=== PATIENT | female | born 1995 | race American Indian/Alaskan Native ===

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

== ENCOUNTER 2019-07-16 10:56 | Outpatient (CLI) | payer BC, MEDICAID | END 2019-07-16 17:35 | disposition home or self-care (01) | LOC: TRG 10:56 → LAB 10:56 → TRG 17:06 | PROVIDERS: ATTEND Obstetrics & Gynecology | DX: O26.893 Other specified pregnancy related conditions, third trimester (principal); Z3A.28 28 weeks gestation of pregnancy; Z67.21 Type B blood, Rh negative | CPT/HCPCS: 86850; 86870; 86900; 86901; 96372; J2790 ==

== ENCOUNTER 2019-09-15 05:20 | Observation (INO) | payer BC, MEDICAID ==
[2019-09-15 06:17] LABS: Basophils % (Auto) 0.3 % (0.0-1.8); Eosinophils # (Auto) 0.3 K/mm3 (0.0-0.4); Hematocrit 30.9 % (30.3-42.9); Hemoglobin 10.1 gm/dl (10.1-14.3); Lymphocytes # (Auto) 2.5 K/mm3 (1.2-5.4); Lymphocytes % (Auto) 26.6 % (13.4-35.0); Mean Corpuscular HGB Conc 33 % (30-34); Mean Corpuscular Volume 86 fl (79-97); Monocytes # (Auto) 0.7 K/mm3 (0.0-0.8); Monocytes % (Auto) 7.4 % (0.0-7.3); Red Blood Count 3.61 M/mm3 (3.65-5.03); Red Cell Distribution Width 15.4 % (13.2-15.2)
--- NOTE | 2019-09-15 06:21 | XRay Report ---
CHEST 1 VIEW INDICATION / CLINICAL INFORMATION: Chest Pain. COMPARISON: None available. FINDINGS: SUPPORT DEVICES: None. HEART / MEDIASTINUM: No significant abnormality. LUNGS / PLEURA: No significant pulmonary or pleural abnormality. No pneumothorax. ADDITIONAL FINDINGS: No significant additional findings. IMPRESSION: 1. No acute findings. Signer Name: Fatmata Gutierrez MD Signed: 09/15/2019 6:17 AM Workstation Name: [id number]
[2019-09-15 06:30] LABS: Platelet Count 128 K/mm3 (140-440)
[2019-09-15 06:36] LABS: BUN/Creatinine Ratio 8; Blood Urea Nitrogen 7 mg/dL (7-17); Calcium 8.7 mg/dL (8.4-10.2); Hemolysis Index 1
--- NOTE | 2019-09-15 06:56 | Emergency Department Report ---
HPI - General Chief Complaint: Chest Pain Time Seen by Provider: 09/15/19 06:40 - HPI HPI: Room 17 The patient is a 24-year-old female present with a chief complaint of chest pain or shortness of breath. The patient is status post vaginal delivery 09/12/2019. The patient states she was discharged home yesterday after waking up from a nap she developed pain in her left chest. Patient describes her pain as a dull pressure. Patient denies nausea/vomiting or diaphoresis with her pain. Patient admits to pleurisy. Patient denies fever or cough. Patient states she has had swelling in both lower extremities since she delivered but the left seems greater than the right. Patient denies sick contacts. The patient states she is attempting to breast-feed ED Past Medical Hx - Past Medical History Previous Medical History?: No - Surgical History Past Surgical History?: No Additional Surgical History: D&C - Family History Family history: no significant - Social History Smoking Status: Never Smoker Substance Use Type: None (Denies illicit drug use) - Medications Home Medications: Home Medications Medication Instructions Recorded Confirmed Last Taken Type No.137/Iron/Folic Acd 1 each PO DAILY 09/10/19 09/10/19 09/10/19 History [[facility] Tablet] Ferrous Sulfate [Feosol 325 MG tab] 325 mg PO QDAY 30 Days #30 tablet 09/13/19 Unknown Rx ED Review of Systems ROS: Stated complaint: CHEST PAIN Other details as noted in HPI Constitutional: denies: diaphoresis, fever Eyes: denies: eye pain ENT: denies: throat pain Respiratory: shortness of breath. denies: cough Cardiovascular: chest pain Gastrointestinal: denies: abdominal pain, nausea, vomiting Genitourinary: denies: dysuria Musculoskeletal: denies: back pain Neurological: denies: headache Hematological/Lymphatic: other (Bilateral lower extremity edema) Physical Exam - Physical Exam Vital Signs: Vital Signs 09/15/19 09/15/19 09/15/19 05:26 06:09 06:15 Temperature 98.2 F Pulse Rate 66 61 60 Respiratory 14 18 30 H Rate Blood Pressure 133/78 119/73 O2 Sat by Pulse 100 100 99 Oximetry Physical Exam: GENERAL: The patient is well-developed well-nourished female lying on stretcher not appearing to be in acute distress. [] HEENT: Normocephalic. Atraumatic. Extraocular motions are intact. Patient has moist mucous membranes. NECK: Supple. Trachea midline CHEST/LUNGS: Clear to auscultation. There is no respiratory distress noted. HEART/CARDIOVASCULAR: Regular. There is no tachycardia. There is no gallop rub or murmur. ABDOMEN: Abdomen is soft, nontender. Patient has normal bowel sounds. There is no abdominal distention. SKIN: There is no rash. There is 1+ bilateral lower extremity pitting edema. There is no diaphoresis. NEURO: The patient is awake, alert, and oriented. The patient is cooperative. The patient has normal speech MUSCULOSKELETAL:There is no evidence of acute injury. ED Course Vital Signs 09/15/19 09/15/19 09/15/19 05:26 06:09 06:15 Temperature 98.2 F Pulse Rate 66 61 60 Respiratory 14 18 30 H Rate Blood Pressure 133/78 119/73 O2 Sat by Pulse 100 100 99 Oximetry - Consultations Consultation #1: 09/15/19 09:29 [employer] paged 09/15/19 10:[address] Benites-recommends hospitalist admit and consult him if necessary ED Medical Decision Making - Lab Data Result diagrams: 09/15/19 05:43 09/15/19 05:43 Laboratory Tests 09/15/19 09/15/19 09/15/19 05:43 05:43 06:49 WBC 9.3 RBC 3.61 L Hgb 10.1 Hct 30.9 MCV 86 MCH 28 MCHC 33 RDW 15.4 H Plt Count 128 L Lymph % (Auto) 26.6 Campbell % (Auto) 7.4 H Eos % (Auto) 3.0 Baso % (Auto) 0.3 Lymph # 2.5 Campbell # 0.7 Eos # 0.3 Baso # 0.0 Seg Neutrophils % 62.7 Seg Neutrophils # 5.8 Sodium 142 Potassium 4.1 Chloride 105.5 Carbon Dioxide 24 Anion Gap 17 BUN 7 Creatinine 0.9 Estimated GFR > 60 BUN/Creatinine Ratio 8 Glucose 93 Calcium 8.7 Troponin T < 0.010 NT-Pro-B Natriuret Pep 616.1 H 09/15/19 09:20 WBC RBC Hgb Hct MCV MCH MCHC RDW Plt Count Lymph % (Auto) Campbell % (Auto) Eos % (Auto) Baso % (Auto) Lymph # Campbell # Eos # Baso # Seg Neutrophils % Seg Neutrophils # Sodium Potassium Chloride Carbon Dioxide Anion Gap BUN Creatinine Estimated GFR BUN/Creatinine Ratio Glucose Calcium Troponin T < 0.010 NT-Pro-B Natriuret Pep - EKG Data -: EKG Interpreted by Me EKG shows normal: sinus rhythm Rate: normal - EKG Data When compared to previous EKG there are: previous EKG unavailable Interpretation: other (No ischemic changes seen) - Radiology Data Radiology results: report reviewed (Chest x-ray, CT chest), image reviewed (Chest x-ray, CT chest, bilateral lower extremity Doppler) interpreted by me: Chest x-ray-no focal infiltrates, no pneumothorax Findings [address] [address] XRay Report Signed Patient: OMAR LIRA MR#: [id number] : 1995 Acct:[id number] Age/Sex: 24 / F ADM Date: 09/15/19 Loc: ED Attending Dr: Ordering Physician: KATELYNN GRAHAM MD Date of Service: 09/15/19 Procedure(s): XR chest 1V ap Accession Number(s): [id number] cc: ED MD SANTOS Fluoro Time In Minutes: CHEST 1 VIEW INDICATION / CLINICAL INFORMATION: Chest Pain. COMPARISON: None available. FINDINGS: SUPPORT DEVICES: None. HEART / MEDIASTINUM: No significant abnormality. LUNGS / PLEURA: No significant pulmonary or pleural abnormality. No pneumothorax. ADDITIONAL FINDINGS: No significant additional findings. IMPRESSION: 1. No acute findings. Signer Name: Fatmata Gutierrez MD Signed: 09/15/2019 6:17 AM Workstation Name: [id number] Transcribed By: JR Dictated By: Fatmata Gutierrez MD Electronically Authenticated By: Fatmata Gutierrez MD Signed Date/Time: 09/15/19616 DD/ 5 TD/TT: Findings [address] [address] Cat Scan Report Signed Patient: OMAR LIRA MR#: [id number] : 1995 Acct:[id number] Age/Sex: 24 / F ADM Date: 09/15/19 Loc: ED Attending Dr: Ordering Physician: SHAWN GIL MD Date of Service: 09/15/19 Procedure(s): CT angio chest Accession Number(s): [id number] cc: SHAWN GIL MD CTA chest with contrast INDICATION : MAIN: chest pain, pleurisy LT side and center when supine. [id number] 100ml. TECHNIQUE: Axial imaging performed through the chest, with contrast bolus timing set to maximize opacification of the pulmonary arteries. 3-plane MIP reformatted images were obtained. All CT scans at this location are performed using CT dose reduction for ALARA by means of automated exposure control. 100 mL of intravenous contrast administered. COMPARISON: None FINDINGS: Bolus: Contrast bolus timing is adequate. PTE: No filling defect is present to suggest PTE. Mediastinum: Heart and great vessels appear normal. No pathologic mediastinal adenopathy. Lungs: Lungs are clear. Upper abdomen: Limit ed imaging of the upper abdomen shows nothing acute. Bones: Degenerative changes in the spine with nothing acute. IMPRESSION: Negative for PTE. Clear lungs. Signer Name: Paramjit Diallo MD Signed: 09/15/2019 8:06 AM Workstation Name: [id number] Transcribed By: JW Dictated By: Paramjit Diallo MD Electronically Authenticated By: Paramjit Diallo MD Signed Date/Time: 09/15/19805 DD/ 4 TD/TT: - Differential Diagnosis cardiomyopathy, PE, pericarditis, ACS, GERD, anxiety Critical care attestation.: If time is entered above; I have spent that time in minutes in the direct care of this critically ill patient, excluding procedure time. ED Disposition Clinical Impression: Chest pain, Shortness of breath Disposition: OP ADMIT IP TO THIS HOSP Is pt being admited?: Yes Does the pt Need Aspirin: Yes Condition: Fair Instructions: Chest Pain (ED) Referrals: PRIMARY CARE, [Primary Care Provider] - 3-5 Days Time of Disposition: 10:17 (Hospitalist paged)
--- NOTE | 2019-09-15 07:35 | Vascular Lab Report ---
DUPLEX DOPPLER LOWER EXTREMITY VEINS, BILATERAL INDICATION: Swelling. TECHNIQUE: Duplex doppler imaging was performed through the veins of both lower extremities using venous robert leo and other maneuvers. COMPARISON: None available. FINDINGS: Right Common Femoral vein: Negative. Right Superficial Femoral vein: Negative. Right Popliteal vein: Negative. Right Calf veins: Negative. Left Common Femoral vein: Negative. Left Superficial Femoral vein: Negative. Left Popliteal vein: Negative. Left Calf veins: Negative. Additional findings: None. IMPRESSION: 1. No sonographic evidence for DVT in either lower extremity. Signer Name: Fatmata Gutierrez MD Signed: 09/15/2019 7:31 AM Workstation Name: [id number]
--- NOTE | 2019-09-15 08:10 | Cat Scan Report ---
CTA chest with contrast INDICATION : MAIN: chest pain, pleurisy LT side and center when supine. [id number] 100ml. TECHNIQUE: Axial imaging performed through the chest, with contrast bolus timing set to maximize opa cification of the pulmonary arteries. 3-plane MIP reformatted images were obtained. All CT scans at this location are performed using CT dose reduction for ALARA by means of automated exposure control. 100 mL of intravenous contrast administered. COMPARISON: None FINDINGS: Bolus: Contrast bolus timing is adequate. PTE: No filling defect is present to suggest PTE. Mediastinum: Heart and great vessels appear normal. No pathologic mediastinal adenopathy. Lungs: Lungs are clear. Upper abdomen: Limited imaging of the upper abdomen shows nothing acute. Bones: Degenerative changes in the spine with nothing acute. IMPRESSION: Negative for PTE. Clear lungs. Signer Name: Paramjit Diallo MD Signed: 09/15/2019 8:06 AM Workstation Name: [id number]
[2019-09-15] MEDS ORDERED: ACETAMINOPHEN 325 MG TAB PO PRN (11:15)
[2019-09-15] MEDS ORDERED: ONDANSETRON 4 MG/2 ML INJ IV PRN (11:15)
--- NOTE | 2019-09-15 11:15 | History and Physical Report ---
History of Present Illness Date of examination: 09/15/19 Date of admission: 09/15/19 10:19 Chief complaint: cp History of present illness: The patient is a 24-year-old female present with a chief complaint of chest pain or shortness of breath. The patient is status post vaginal delivery 09/12/2019. The patient states she was discharged home yesterday after waking up from a nap she developed pain in her left chest. Patient describes her pain as a dull pressure. Patient denies nausea/vomiting or diaphoresis with her pain. Patient admits to pleurisy. Patient denies fever or cough. Patient states she has had swelling in both lower extremities since she delivered but the left seems greater than the right. Patient denies sick contacts. Past History Past Medical History: No medical history Past Surgical History: Other (D & C) Social history: no significant social history Medications and Allergies Allergies Allergy/AdvReac Type Severity Reaction Status Date / Time No Known Allergies Allergy Verified 09/10/19 18:23 Home Medications Medication Instructions Recorded Confirmed Last Taken Type No.137/Iron/Folic Acd 1 each PO DAILY 09/10/19 09/10/19 09/10/19 History [[facility] Tablet] Ferrous Sulfate [Feosol 325 MG tab] 325 mg PO QDAY 30 Days #30 tablet 09/13/19 Unknown Rx Review of Systems All systems: negative Exam - Constitutional Vitals: Temp Pulse Resp BP Pulse Ox 98.2 F 52 L 14 113/60 100 09/15/19 05:26 09/15/19 11:01 09/15/19 11:01 09/15/19 11:01 09/15/19 11:01 General appearance: Present: no acute distress, well-nourished - EENT Eyes: Present: PERRL ENT: hearing intact, clear oral mucosa - Neck Neck: Present: supple, normal ROM - Respiratory Respiratory effort: normal Respiratory: bilateral: CTA - Cardiovascular Heart Sounds: Present: S1 & S2. Absent: rub, click - Extremities Extremities: pulses symmetrical, No edema Peripheral Pulses: within normal limits - Abdominal General gastrointestinal: Present: soft, non-tender, non-distended, normal bowel sounds Female genitourinary: Present: normal - Integumentary Integumentary: Present: clear, warm, dry - Musculoskeletal Musculoskeletal: gait normal, strength equal bilaterally - Psychiatric Psychiatric: appropriate mood/affect, intact judgment & insight - Neurologic Neurologic: CNII-XII intact, moves all extremities ERENDIRA score - Erendira Score Age > 65: (0) No Aspirin use within the Past 7 Days: (0) No 3 or more CAD Risk Factors: (0) No 2 or more Angina events in past 24 hrs: (0) No Known CAD with more than 50% Stenosis: (0) No Elevated Cardiac Markers: (0) No ST Deviation Greater than 0.5mm: (0) No ERENDIRA Score: 0 Results - Labs CBC & Chem 7: 09/15/19 05:43 09/15/19 05:43 Labs: Laboratory Last Values WBC 9.3 K/mm3 (4.5-11.0) 09/15/19 05:43 RBC 3.61 M/mm3 (3.65-5.03) L 09/15/19 05:43 Hgb 10.1 gm/dl (10.1-14.3) 09/15/19 05:43 Hct 30.9 % (30.3-42.9) 09/15/19 05:43 MCV 86 fl (79-97) 09/15/19 05:43 MCH 28 pg (28-32) 09/15/19 05:43 MCHC 33 % (30-34) 09/15/19 05:43 RDW 15.4 % (13.2-15.2) H 09/15/19 05:43 Plt Count 128 K/mm3 (140-440) L 09/15/19 05:43 Lymph % (Auto) 26.6 % (13.4-35.0) 09/15/19 05:43 [place] % (Auto) 7.4 % (0.0-7.3) H 09/15/19 05:43 Eos % (Auto) 3.0 % (0.0-4.3) 09/15/19 05:43 Baso % (Auto) 0.3 % (0.0-1.8) 09/15/19 05:43 Lymph # 2.5 K/mm3 (1.2-5.4) 09/15/19 05:43 [place] # 0.7 K/mm3 (0.0-0.8) 09/15/19 05:43 Eos # 0.3 K/mm3 (0.0-0.4) 09/15/19 05:43 Baso # 0.0 K/mm3 (0.0-0.1) 09/15/19 05:43 Seg Neutrophils % 62.7 % (40.0-70.0) 09/15/19 05:43 Seg Neutrophils # 5.8 K/mm3 (1.8-7.7) 09/15/19 05:43 Sodium 142 mmol/L (137-145) 09/15/19 05:43 Potassium 4.1 mmol/L (3.6-5.0) 09/15/19 05:43 Chloride 105.5 mmol/L (98-107) 09/15/19 05:43 Carbon Dioxide 24 mmol/L (22-30) 09/15/19 05:43 Anion Gap 17 mmol/L 09/15/19 05:43 BUN 7 mg/dL (7-17) 09/15/19 05:43 Creatinine 0.9 mg/dL (0.7-1.2) 09/15/19 05:43 Estimated GFR > 60 ml/min 09/15/19 05:43 BUN/Creatinine Ratio 8 % 09/15/19 05:43 Glucose 93 mg/dL (65-100) 09/15/19 05:43 Calcium 8.7 mg/dL (8.4-10.2) 09/15/19 05:43 Troponin T < 0.010 ng/mL (0.00-0.029) 09/15/19 09:20 NT-Pro-B Natriuret Pep 616.1 pg/mL (0-450) H 09/15/19 06:49 Johnson/IV: IV Catheter Type [Right INT / Saline Lock Antecubital] Assessment and Plan Assessment and plan: Chest Pian. Chest pain protocol. F/U Enzymes. ECHO to r/o Cardiomyopathy. CTA chest negative. Cardiology consulted sinus bradycardia. Tele monitor. s/p recent spontaneous vaginal delivery
[2019-09-15 11:45] LABS: Bilirubin,Urine NEG (Negative); Blood,Urine NEG (Negative); Color,Urine Colorless (Yellow); Protein,Urine <15 mg/dL mg/dL (Negative); Urobilinogen,Urine < 2.0 mg/dL (<2.0)
[2019-09-15 11:53] LABS: Eosinophils # (Auto) 0.3 K/mm3 (0.0-0.4); Eosinophils % (Auto) 3.1 % (0.0-4.3); Monocytes # (Auto) 0.5 K/mm3 (0.0-0.8); Monocytes % (Auto) 5.5 % (0.0-7.3)
[2019-09-15 11:59] LABS: BUN/Creatinine Ratio 8; Blood Urea Nitrogen 6 mg/dL (7-17); Hemolysis Index 4
[2019-09-15 12:08] LABS: Hematocrit 31.9 % (30.3-42.9); Hemoglobin 10.6 gm/dl (10.1-14.3); Mean Corpuscular HGB Conc 33 % (30-34); Mean Corpuscular Volume 85 fl (79-97); Red Blood Count 3.74 M/mm3 (3.65-5.03); Red Cell Distribution Width 15.3 % (13.2-15.2)
[2019-09-15 12:15] LABS: Basophils % (Auto) 0.3 % (0.0-1.8); Lymphocytes # (Auto) 2.1 K/mm3 (1.2-5.4); Lymphocytes % (Auto) 24.2 % (13.4-35.0)
[2019-09-15 13:13] LABS: Platelet Count 133 K/mm3 (140-440)
--- NOTE | 2019-09-15 16:13 | Consultation ---
History of Present Illness Consult date: 09/15/19 Requesting physician: CLARK ZAPATA Consult reason: chest pain, other (?PP CMP) History of present illness: Pt is a 24 y.o. AA female with no significant past medical hx, who is s/p spontaneous vaginal delivery on 09/12/2019. She is new to our practice. Pt presented with c/o intermitted left-sided chest "tightness" with associated SOB that started when she woke up from a nap yesterday afternoon. Pt reports that th e pain is more focused at the center of her chest when she is supine. She states the CP is dull and worsens with inspiration. Pt denies, palpitations, diaphoresis, dizziness, lightheadedness, syncope, headache, cough, orthopnea, edema, fever/chills, and N/V. Upon exam, pt reports her CP has significantly improved. No SOB. Trop negative x 2. ECG upon admission shows no acute ischemic changes. CXR unremarkable. Chest CTA negative. Past History Past Medical History: No medical history Past Surgical History: Other (D & C) Social history: no significant social history Family history: no significant family history Medications and Allergies Allergies Allergy/AdvReac Type Severity Reaction Status Date / Time No Known Allergies Allergy Verified 09/10/19 18:23 Home Medications Medication Instructions Recorded Confirmed Last Taken Type No.137/Iron/Folic Acd 1 each PO DAILY 09/10/19 09/10/19 09/14/19 History [[facility] Table[facility]] Ferrous Sulfate [Feosol 325 MG tab] 325 mg PO QDAY 30 Days #30 tablet 09/13/19 09/15/19 Unknown Rx Active Meds: Active Medications Acetaminophen (Tylenol) 650 mg PO Q4H PRN PRN Reason: Pain MILD(1-3)/Fever >100.5/MEZA Ondansetron HCl (Zofran) 4 mg IV Q8H PRN PRN Reason: Nausea And Vomiting Sodium Chloride (Sodium Chloride Flush Syringe 10 Ml) 10 ml IV BID RENUKA Sodium Chloride (Sodium Chloride Flush Syringe 10 Ml) 10 ml IV PRN PRN PRN Reason: LINE FLUSH Review of Systems Constitutional: no fever, no chills, no sweats, no fatigue, no weakness Ears, nose, mouth and throat: no tinnitis, no decreased hearing, no nasal congestion, no sinus pressure, no epistaxis, no dysphagia Cardiovascular: chest pain, no orthopnea, no palpitations, no edema, no syncope, no lightheadedness, no shortness of breath, no dyspnea on exertion, no claudication Respiratory: no cough, no shortness of breath, no dyspnea on exertion, no wheezing Gastrointestinal: no abdominal pain, no nausea, no vomiting, no diarrhea, no constipation Genitourinary Female: no pelvic pain, no flank pain, no dysuria Musculoskeletal: no neck stiffness, no neck pain, no muscle weakness, no muscle cramps Integumentary: no rash, no wounds Neurological: no head injury, no paralysis, no weakness, no parathesias, no numbness, no tingling, no seizures, no syncope, no vertigo, no headaches Endocrine: no cold intolerance, no heat intolerance, no polydipsia, no polyuria Hematologic/Lymphatic: no easy bruising, no easy bleeding Allergic/Immunologic: no urticaria, no anaphylaxis Physical Examination Last Vital Signs Temp 98.3 F 09/15/19 16:05 Pulse 62 09/15/19 16:05 Resp 18 09/15/19 16:05 BP 120/84 09/15/19 16:05 Pulse Ox 100 09/15/19 16:05 General appearance: no acute distress HEENT: Positive: EOMI, Normocephaly, Mucus Membranes Moist Neck: Positive: neck supple, trachea midline. Negative: JVD/HJR Cardiac: Positive: Regular Rhythm, S1/S2, Bradycardia Lungs: Positive: clear to auscultation (bilaterally), No Wheeze, Rales, Rhonchi Neuro: Positive: Grossly Intact, Cranial Nerve 2-12 Intact, Motor Function Intact, Coordination Normal, Sensory Function Intact. Negative: Numbness, Weakness Abdomen: Positive: Soft, Active Bowel Sounds. Negative: Tender Skin: Negative: Rash, Suspicious Lesions Musculoskeletal: No Pain, Normal Range of Motion Extremities: Present: upper extr. pulses, lower extr. pulses. Absent: edema Results 09/15/19 11:23 09/15/19 11:23 CBC 09/15/19 09/15/19 Range/Units 05:43 11:23 WBC 9.3 9.1 (4.5-11.0) K/mm3 RBC 3.61 L 3.74 (3.65-5.03) M/mm3 Hgb 10.1 10.6 (10.1-14.3) gm/dl Hct 30.9 31.9 (30.3-42.9) % Plt Count 128 L 133 L (140-440) K/mm3 Lymph # 2.5 2.1 (1.2-5.4) K/mm3 [place] # 0.7 0.5 (0.0-0.8) K/mm3 Eos # 0.3 0.3 (0.0-0.4) K/mm3 Baso # 0.0 0.0 (0.0-0.1) K/mm3 Comprehensive Metabolic Panel 09/15/19 09/15/19 Range/Units 05:43 11:23 Sodium 142 142 (137-145) mmol/L Potassium 4.1 3.8 (3.6-5.0) mmol/L Chloride 105.5 105.2 (98-107) mmol/L Carbon Dioxide 24 25 (22-30) mmol/L BUN 7 6 L (7-17) mg/dL Creatinine 0.9 0.8 (0.7-1.2) mg/dL Glucose 93 71 (65-100) mg/dL Calcium 8.7 9.0 (8.4-10.2) mg/dL - Imaging and Cardiology Echo: report reviewed (EF 60-65%) EKG: report reviewed, image reviewed - EKG Interpretation EKG: no acute changes EKG shows: sinus rhythm EKG interpretations - Telemetry EKG Rhythm: Sinus Bradycardia - EKG Sinus rhythms and dysrhythmias: sinus rhythm Assessment and Plan Echo reviewed 09/15/2019 - EF 60-65%. Continue telemetry monitoring. Currently stable cardiac status. Pt may be discharged from a Cardiology standpoint. Recommend f/u with Primary within 2-4 weeks of discharge. Pt seen in conjunction with Dr. Hernandez, who agrees with the assessment and plan of care. - Patient Problems (1) Chest pain Current Visit: Yes Status: Acute (2) Sinus bradycardia Current Visit: Yes Status: Acute (3) Status post normal vaginal delivery Current Visit: Yes Status: Resolved
[2019-09-16 04:56] LABS: Basophils % (Auto) 0.5 % (0.0-1.8); Eosinophils # (Auto) 0.3 K/mm3 (0.0-0.4); Eosinophils % (Auto) 3.3 % (0.0-4.3); Hematocrit 32.4 % (30.3-42.9); Hemoglobin 10.6 gm/dl (10.1-14.3); Lymphocytes # (Auto) 2.2 K/mm3 (1.2-5.4); Lymphocytes % (Auto) 27.2 % (13.4-35.0); Mean Corpuscular HGB Conc 33 % (30-34); Mean Corpuscular Volume 86 fl (79-97); Monocytes # (Auto) 0.6 K/mm3 (0.0-0.8); Monocytes % (Auto) 7.3 % (0.0-7.3); Red Blood Count 3.78 M/mm3 (3.65-5.03); Red Cell Distribution Width 15.5 % (13.2-15.2)
[2019-09-16 05:05] LABS: Platelet Count 134 K/mm3 (140-440)
[2019-09-16 05:27] LABS: BUN/Creatinine Ratio 8; Blood Urea Nitrogen 6 mg/dL (7-17); Calcium 8.3 mg/dL (8.4-10.2); Hemolysis Index 10
[2019-09-16 08:34] VITALS: BP 123/86
--- NOTE | 2019-09-16 08:38 | Discharge Summary ---
Providers - Providers Date of Admission: 09/15/19 10:19 Date of discharge: 09/16/19 Attending physician: CLARK ZAPATA 09/15/19 Consult to Cardiac Rehabilitation [CONS] Routine Reason For Exam: Phase I 09/15/19 10:16 Consult to Physician [CONS] Urgent Comment: DR LOUISE DAVIS W/DR HOOVER @1013 Consulting Provider: CONG HOOVER Physician Instructions: Reason For Exam: cardiomyopathy 09/15/19 11:10 Consult to Physician [CONS] Routine Comment: Consulting Provider: MELODY CARRANZA Physician Instructions: Reason For Exam: cp 09/15/19 11:16 Consult to Cardiology [CONS] Routine Consulting Provider: MELODY CARRANZA Reason For Exam: CM Primary care physician: [facility] Hospitalization Reason for admission: cp Condition: Fair Hospital course: Pt is a 24 y.o. AA female with no significant past medical hx, who is s/p spontaneous vaginal delivery on 09/12/2019 who presented with c/o intermitted left-sided chest "tightness" with associated SOB that started when she woke up from a nap the afternoon prior to admission. Pt reported that the pain was more focused at the center of her chest when she was supine. She stated the CP is dull and worsens with inspiration. Pt denies, palpitations, diaphoresis, dizziness, lightheadedness, syncope, headache, cough, orthopnea, edema, fever/chills, and N/V. Upon exam, pt reports her CP has significantly improved. No SOB. Trop negative. ECG upon admission showed no acute ischemic changes. CXR unremarkable. Chest CTA negative. Echocardiogram revealed EF of 60 to 65% with no evidence of cardiomyopathy. Cardiology felt that the patient's cardiac status was stable and could be discharged home. Recommend f/u with Primary within 2-4 weeks of discharge. Etiology is likely secondary to mastalgia from breast-feeding. Dedicated discharge time 32 minutes Disposition: DC-01 TO HOME OR SELFCARE Time spent for discharge: 32 - Discharge Diagnoses (1) Mastalgia Status: Acute Core Measure Documentation - Palliative Care Palliative Care/ Comfort Measures: Not Applicable - Core Measures Any of the following diagnoses?: none Exam - Constitutional Vitals: Temp Pulse Resp BP Pulse Ox 97.9 F 57 L 16 118/68 99 09/16/19 03:37 09/16/19 03:37 09/16/19 03:37 09/16/19 03:37 09/16/19 03:37 General appearance: Present: no acute distress, well-nourished - EENT Eyes: Present: PERRL ENT: hearing intact, clear oral mucosa - Neck Neck: Present: supple, normal ROM - Respiratory Respiratory effort: normal Respiratory: bilateral: CTA - Cardiovascular Heart Sounds: Present: S1 & S2. Absent: rub, click - Extremities Extremities: pulses symmetrical, No edema Peripheral Pulses: within normal limits - Abdominal General gastrointestinal: Present: soft, non-tender, non-distended, normal bowel sounds Female genitourinary: Present: normal - Integumentary Integumentary: Present: clear, warm, dry - Musculoskeletal Musculoskeletal: gait normal, strength equal bilaterally - Psychiatric Psychiatric: appropriate mood/affect, intact judgment & insight - Neurologic Neurologic: CNII-XII intact, moves all extremities Plan Activity: advance as tolerated Weight Bearing Status: Weight Bear as Tolerated Diet: regular Follow up with: PRIMARY CARE, [Primary Care Provider] - 3-5 Days
== END 2019-09-16 11:00 | disposition home or self-care (01) ==
LOC: ED 05:20 → 4A 10:19
PROVIDERS: ADMIT Hospitalist; ATTEND Hospitalist
DX: O90.89 Other complications of the puerperium, not elsewhere classified (principal); R07.89 Other chest pain; R00.1 Bradycardia, unspecified; R79.89 Other specified abnormal findings of blood chemistry; R06.02 Shortness of breath
CPT/HCPCS: 36415; 71045; 71275; 80048; 81001; 83880; 84484; 85025; 87116; 93005; 93010; 93306; 93970; 99285; G0378; Q9967